=== PATIENT | male | born 1970 | race Hispanic/Latino ===

== ENCOUNTER 2018-06-19 09:40 | Day surgery (SDC) | payer BC ==
[2018-06-18 15:48] VITALS: BP 127/71
[2018-06-18 15:55] LABS: BASOPHILS % (AUTO) 0.4 % (0.0-5.0); EOSINOPHILS % (AUTO) 1.6 % (0.0-8.0); HEMATOCRIT 43.7 % (42-54); LYMPHOCYTES % (AUTO) 26.9 % (21.0-51.0); MEAN CORPUSCULAR HEMOGLOBIN 30.2 pg (27.0-33.0); MEAN CORPUSCULAR HGB CONC 34.4 g/dL (32.0-36.0); MEAN CORPUSCULAR VOLUME 87.8 fL (79-99); MONOCYTES % (AUTO) 9.4 % (3.0-13.0); NEUTROPHILS % (AUTO) 61.7 % (40.0-77.0); PLATELET COUNT (AUTO) 233 K/uL (130-400); RED BLOOD CELL COUNT(AUTO) 4.97 MIL/uL (4.50-6.20); RED CELL DISTRIBUTION WIDTH 13.9 % (11.0-15.5); WHITE BLOOD COUNT (AUTO) 7.3 K/uL (4.8-10.8)
[2018-06-18 16:07] LABS: CREATININE 1.2 mg/dL (0.5-1.5)
[2018-06-19] VITALS (12 sets, daily range): BP systolic 126–140; BP diastolic 70–84
[~2018-06-19] VITALS: Ht 175.3 cm; Wt 85.6 kg
[~2018-06-19 09:40] MED LIST: ASPI-555 PO; ATOR40TA71 PO; CLOP75TA14 PO
[2018-06-19] MEDS ORDERED: LACTATED RINGERS 1000ML 1,000 ML IV ONE (10:19)
[2018-06-19] MEDS ORDERED: CEFAZOLIN SODIUM 1 GM VIAL ONE (10:20)
[2018-06-19] MEDS: CEFAZOLIN SODIUM 1 GM VIAL IVP SCH ×2 (11:12→15:17)
[2018-06-19] MEDS ORDERED: OCTYL 2-CYANOACRYLATE 1 EACH TP ONE (14:15)
[2018-06-19] MEDS ORDERED: EPINEPHRINE 1 MG/ML 30ML VIAL IJ ONE (14:15)
[2018-06-19] MEDS ORDERED: LIDOCAINE PF 2% 5ML ABBOJECT ONE (14:52)
[2018-06-19] MEDS ORDERED: PROPOFOL 10 MG/ML 20ML VIAL IV ONE (14:52)
[2018-06-19] MEDS ORDERED: ROPIVACAINE 0.5% 5MG/ML 30ML IJ ONE (14:52)
[2018-06-19] MEDS ORDERED: FENTANYL CITRATE PF 50 MCG/1 ML 2ML VIAL ONE ×2 (14:52→18:24)
[2018-06-19] MEDS ORDERED: ROCURONIUM 10MG/1ML SYR 10 MG/ML ML ONE (15:10)
[2018-06-19] MEDS ORDERED: KETOROLAC TROMETHAMINE 30MG/ML ONE (18:24)
[2018-06-19] MEDS ORDERED: CEPH500B PO (18:37)
[2018-06-19] MEDS ORDERED: HYDR-4457 PO (18:37)
== END 2018-06-19 20:50 | disposition home or self-care (01) ==
LOC: DAH 09:40 → EEVIPCON 09:40 → DAH 20:50
PROVIDERS: ATTEND Orthopaedic Surgery
DX: S46.011A Strain of muscle(s) and tendon(s) of the rotator cuff of right shoulder, initial encounter (principal); S43.431A Superior glenoid labrum lesion of right shoulder, initial encounter; M75.41 Impingement syndrome of right shoulder; M75.21 Bicipital tendinitis, right shoulder; I25.10 Atherosclerotic heart disease of native coronary artery without angina pectoris; W22.8XXA Striking against or struck by other objects, initial encounter; Y93.89 Activity, other specified; Y92.89 Other specified places as the place of occurrence of the external cause; Y99.8 Other external cause status; Z79.82 Long term (current) use of aspirin; Z79.01 Long term (current) use of anticoagulants; Z79.899 Other long term (current) drug therapy; Z82.49 Family history of ischemic heart disease and other diseases of the circulatory system
CPT/HCPCS: 29806; 29824; 29826; 29827; 36415; 80048; 85025; A4649 ×6; A4930; A6204; C1713 ×2; J0171; J0690; J1885; J2001; J2704; J2795; J3010 ×2; J7030; J7120

== ENCOUNTER → 2019-03-26 | Outpatient (CLI) | payer OTHER ==
[~2019-03-26] MED LIST changes: +CEPH500B PO; +HYDR-4457 PO
[2019-03-26 08:19] LABS: HEMOGLOBIN A1C 5.9 % (4.0-6.0)
[2019-03-26 08:28] LABS: ALBUMIN 3.6 g/dL (3.5-5.0); BILIRUBIN,DIRECT 0.1 mg/dL (0.0-0.3); BILIRUBIN,TOTAL 0.7 mg/dL (0.2-1.0); TOTAL PROTEIN, SERUM 6.9 g/dL (6.0-8.3)
== END | disposition home or self-care (01) ==
LOC: LAB 07:08
PROVIDERS: ATTEND Internal Medicine Cardiovascular Disease
DX: I25.10 Atherosclerotic heart disease of native coronary artery without angina pectoris (principal)
CPT/HCPCS: 36415; 80061; 80076; 83036

== ENCOUNTER → 2019-11-12 | Outpatient (CLI) | payer OTHER ==
[2019-11-12 08:19] LABS: BASOPHILS % (AUTO) 0.7 % (0.0-5.0); HEMATOCRIT 41.7 % (42-54); LYMPHOCYTES % (AUTO) 34.9 % (21.0-51.0); MEAN CORPUSCULAR HEMOGLOBIN 29.1 pg (27.0-33.0); MEAN CORPUSCULAR HGB CONC 33.6 g/dL (32.0-36.0); MEAN CORPUSCULAR VOLUME 86.7 fL (79-99); MONOCYTES % (AUTO) 7.3 % (3.0-13.0); NEUTROPHILS % (AUTO) 54.9 % (40.0-77.0); PLATELET COUNT (AUTO) 199 K/uL (130-400); RED BLOOD CELL COUNT(AUTO) 4.81 MIL/uL (4.50-6.20); RED CELL DISTRIBUTION WIDTH 12.9 % (11.0-15.5); WHITE BLOOD COUNT (AUTO) 5.9 K/uL (4.8-10.8)
[2019-11-12 08:28] LABS: HEMOGLOBIN A1C 5.8 % (4.0-6.0)
[2019-11-12 08:39] LABS: CREATININE 1.1 mg/dL (0.5-1.5); POTASSIUM 4.8 mmol/L (3.5-5.1)
== END | disposition home or self-care (01) ==
LOC: LAB 07:52
PROVIDERS: ATTEND Internal Medicine Cardiovascular Disease
DX: E78.5 Hyperlipidemia, unspecified (principal)
CPT/HCPCS: 36415; 80048; 80061; 83036; 85025

== ENCOUNTER → 2020-08-16 | Outpatient (CLI) | payer OTHER ==
[~2020-08-16] MED LIST changes: -ASPI-555 PO; +ASPI-556 PO
== END | disposition home or self-care (01) ==
LOC: RAH 10:00
PROVIDERS: ATTEND Internal Medicine Cardiovascular Disease
DX: R59.0 Localized enlarged lymph nodes (principal); I72.4 Aneurysm of artery of lower extremity; M79.89 Other specified soft tissue disorders
CPT/HCPCS: 76882

== ENCOUNTER → 2023-10-13 | Outpatient (CLI) | payer OTHER ==
[~2023-10-13] MED LIST changes: +CLOP-31 PO; -CLOP75TA14 PO
[2023-10-13 07:22] LABS: CREATININE 1.1 mg/dL (0.5-1.5); POTASSIUM 4.2 mmol/L (3.5-5.1)
== END | disposition home or self-care (01) ==
LOC: LAB 06:54
PROVIDERS: ATTEND Internal Medicine Cardiovascular Disease
DX: I25.10 Atherosclerotic heart disease of native coronary artery without angina pectoris (principal); E78.5 Hyperlipidemia, unspecified
CPT/HCPCS: 36415; 80048; 80061

== ENCOUNTER → 2025-02-09 | Outpatient (CLI) | payer OTHER ==
[2025-02-09 06:44] LABS: CHOLESTEROL 113 mg/dL (<200); HDL CHOLESTEROL 46 mg/dL (29-71); LDL DIRECT 56 mg/dL (0-99); TRIGLYCERIDES 129 mg/dL (30-200)
== END | disposition home or self-care (01) ==
LOC: LAB 06:17
PROVIDERS: ATTEND Internal Medicine Cardiovascular Disease
DX: E78.5 Hyperlipidemia, unspecified (principal)
CPT/HCPCS: 36415; 80061